=== PATIENT | female | born 1965 | race African-American/Black ===

== ENCOUNTER 2024-05-20 06:28 | Emergency (ER) | payer MEDICARE, MEDICAID ==
[~2024-05-20] VITALS: Ht 165.1 cm; Wt 91.0 kg
[2024-05-20 06:40] VITALS: TEMP 36.7; O2SAT 98
[2024-05-20 08:29] VITALS: BP 156/79; PULSE 80; RESP 16
[2024-05-20] MEDS: TRAMADOL 50MG TABLET PO ONE (08:29)
[2024-05-20] MEDS: IBUPROFEN 600MG TABLET PO ONE (08:29)
[2024-05-20] MEDS ORDERED: IBUP-2030 MT (09:34)
== END 2024-05-20 09:52 | disposition home or self-care (01) ==
LOC: ER 06:53
DX: S63.501A Unspecified sprain of right wrist, initial encounter (principal); M19.031 Primary osteoarthritis, right wrist; F10.90 Alcohol use, unspecified, uncomplicated; X58.XXXA Exposure to other specified factors, initial encounter; Y93.89 Activity, other specified; Y92.89 Other specified places as the place of occurrence of the external cause; Y99.8 Other external cause status; Y90.9 Presence of alcohol in blood, level not specified
CPT/HCPCS: 29125; 73100; 99283